=== PATIENT | female | born 1990 | race Two or more races ===

== ENCOUNTER 2018-07-10 22:36 | Emergency (ER) | payer OTHER | END 2018-07-10 22:53 | disposition left against medical advice (07) | LOC: ER 22:36 | DX: O9A.219 Injury, poisoning and certain other consequences of external causes complicating pregnancy, unspecified trimester (principal); S09.90XA Unspecified injury of head, initial encounter; Z3A.00 Weeks of gestation of pregnancy not specified; Z53.21 Procedure and treatment not carried out due to patient leaving prior to being seen by health care provider; W18.39XA Other fall on same level, initial encounter; Y93.89 Activity, other specified; Y92.89 Other specified places as the place of occurrence of the external cause; Y99.8 Other external cause status ==